=== PATIENT | female | born 1960 | race Caucasian/White ===

== ENCOUNTER 2020-08-07 06:40 | Emergency (ER) | payer MEDICAID ==
[~2020-08-07] VITALS: Ht 160 cm; Wt 49.9 kg
--- NOTE | 2020-08-07 06:59 | NUR ---
Dr. Carrizales at bedside for MSE
[2020-08-07] MEDS ORDERED: FLUORESCEIN SODIUM 1 MG STRIP ONE (07:07)
[2020-08-07] MEDS ORDERED: TETRACAINE HCL 0.5% OPHT DROP 2 ML BOTTLE ONE (07:07)
--- NOTE | 2020-08-07 07:12 | NUR ---
report given to CECY Flemnig
--- NOTE | 2020-08-07 07:12 | NUR ---
General Office Clerk assumes MD [email or web address], pending orders from for fluorecein strip & tetratcaine eye drops by to input in [employer]@this time
--- NOTE | 2020-08-07 07:19 | NUR ---
MD discharge papers from MD@this time
[2020-08-07] MEDS ORDERED: TETRACAINE HCL 0.5% OPHT DROP 2 ML BOTTLE OP ONE (07:45)
[2020-08-07] MEDS ORDERED: FLUORESCEIN SODIUM 1 MG STRIP OP ONE (07:45)
--- NOTE | 2020-08-07 07:45 | NUR ---
Patient discharged to home in stable condition with brisk ssteady gait. Written and verbal after care instructions given to patient. Patient verbalizes understanding and compliance of instructions. Stressed follow upwith opthalmologist in 2-3 days (as soon as possible) or return to ER for worsening s/s.
== END 2020-08-07 07:46 | disposition home or self-care (01) ==
LOC: ER 06:48
DX: S05.02XA Injury of conjunctiva and corneal abrasion without foreign body, left eye, initial encounter (principal); X58.XXXA Exposure to other specified factors, initial encounter; Y92.89 Other specified places as the place of occurrence of the external cause; H10.9 Unspecified conjunctivitis; Z86.79 Personal history of other diseases of the circulatory system; Z87.898 Personal history of other specified conditions
CPT/HCPCS: A4663

== ENCOUNTER 2020-09-21 04:30 | Emergency (ER) | payer MEDICAID, OTHER ==
[~2020-09-21] VITALS: Ht 160 cm; Wt 49.0 kg
[2020-09-21] MEDS ORDERED: IV NORMAL SALINE 1000 ML BAG IV ONE (04:45)
[2020-09-21] MEDS ORDERED: ONDANSETRON 4 MG/2 ML VIAL IV ONE (04:45)
[2020-09-21 04:48] LABS: BASOPHILS # (AUTO) 0.1 K/uL (0.0-8.0); BASOPHILS % (AUTO) 0.3 % (0.0-2.0); EOSINOPHILS # (AUTO) 0.2 K/uL (0.0-0.7); EOSINOPHILS % (AUTO) 1.2 % (0.0-7.0); HEMATOCRIT 45.7 % (31.2-41.9); HEMOGLOBIN 15.2 g/dL (10.9-14.3); LYMPHOCYTES # (AUTO) 0.8 K/uL (20.0-40.0); LYMPHOCYTES % (AUTO) 4.8 % (20.5-51.5); MEAN CORPUSCULAR HEMOGLOBIN 32.2 uug (24.7-32.8); MEAN CORPUSCULAR HGB CONC 33 g/dL (32.3-35.6); MEAN CORPUSCULAR VOLUME 97.1 fL (75.5-95.3); MONOCYTES # (AUTO) 1.4 K/uL (2.0-10.0); NEUTROPHILS % (AUTO) 85.7 % (38.5-71.5); PLATELET COUNT (AUTO) 380 K/uL (179-408); WHITE BLOOD COUNT (AUTO) 17.6 K/uL (3.8-11.8)
[2020-09-21] MEDS ORDERED: ONDANSETRON 4 MG/2 ML VIAL ONE (04:52)
[2020-09-21 04:55] LABS: CREATININE 1.1 mg/dL (0.6-1.3); POTASSIUM 4.4 mmol/L (3.5-5.1)
[2020-09-21 05:01] LABS: BILIRUBIN,DIRECT 0.2 mg/dL (0.0-0.2); BILIRUBIN,TOTAL 0.4 mg/dL (0.2-1.0); TOTAL PROTEIN, SERUM 8.4 g/dL (6.4-8.2)
[2020-09-21] MEDS ORDERED: DICYCLOMINE HCL 20 MG/2 ML AMPUL IM STA (05:01)
[2020-09-21] MEDS ORDERED: MIRT7.5T10 PO (05:02)
[2020-09-21] MEDS ORDERED: OXYC15TA46 PO (05:02)
[2020-09-21] MEDS ORDERED: FLUT16SP2 NS (05:02)
[2020-09-21] MEDS ORDERED: LEVO175T7 PO (05:02)
[2020-09-21] MEDS ORDERED: ESTR0.623 PO (05:02)
[2020-09-21] MEDS ORDERED: AMYL1CAP62 PO (05:02)
[2020-09-21] MEDS ORDERED: ASPI81TA31 PO (05:02)
[2020-09-21] MEDS ORDERED: LISI40TA4 PO (05:02)
[2020-09-21] MEDS ORDERED: POLY17PO4 PO (05:02)
[2020-09-21] MEDS ORDERED: PANT40TA49 PO (05:02)
[2020-09-21] MEDS ORDERED: MEDR2.5T PO (05:02)
[2020-09-21] MEDS ORDERED: EZET10TA32 PO (05:02)
[2020-09-21] MEDS ORDERED: HYDR-894 PO (05:02)
[2020-09-21] MEDS ORDERED: PROP60TA18 PO (05:02)
[2020-09-21] MEDS ORDERED: ONDA8TAB6 PO (05:02)
[2020-09-21] MEDS ORDERED: ALPR1TAB2 PO (05:02)
[2020-09-21] MEDS ORDERED: GABA-536 PO (05:02)
[2020-09-21] MEDS ORDERED: DOCU-141 PO (05:02)
[2020-09-21] MEDS ORDERED: IPRA4AER IH (05:02)
[2020-09-21] MEDS ORDERED: LIDOCAINE VISCUS 2% 15 ML UDC ONE (05:14)
[2020-09-21] MEDS ORDERED: FAMOTIDINE. 20 MG/2 ML VIAL IV ONE ×2 (05:14→05:15)
[2020-09-21] MEDS ORDERED: DICYCLOMINE HCL LIQ 10 MG/5 ML UDC ONE (05:14)
[2020-09-21] MEDS ORDERED: MAG HYDROX/AL HYDROX/SIMETH 30 ML LIQUID UDC ONE (05:14)
[2020-09-21] MEDS ORDERED: MORPHINE SULFATE 4 MG/1 ML DISP.SYRIN ONE (05:14)
[2020-09-21] MEDS ORDERED: MAG HYDROX/AL HYDROX/SIMETH 30 ML LIQUID UDC PO ONE (05:15)
[2020-09-21] MEDS ORDERED: MORPHINE SULFATE 2 MG/1 ML DISP.SYRIN IV ONE (05:15)
[2020-09-21] MEDS ORDERED: LIDOCAINE VISCUS 2% 15 ML UDC MM ONE (05:15)
[2020-09-21] MEDS ORDERED: DICYCLOMINE HCL LIQ 10 MG/5 ML UDC PO ONE (05:30)
[2020-09-21 05:55] VITALS: BP 144/75
--- NOTE | 2020-09-21 05:55 | NUR ---
Patient discharged to home in stable condition. Written and verbal after care instructions given. Patient verbalizes understanding of instructions. Stressed follow up or return to ER for worsening s/s. Patient's here to drive her home. Patient states she feels better.
--- NOTE | 2020-09-21 05:55 | NUR ---
IV removed. Catheter intact and site benign. Pressure and 4x4 gauze applied to site. No bleeding noted.
== END 2020-09-21 05:56 | disposition home or self-care (01) ==
LOC: ER 04:31
DX: R11.2 Nausea with vomiting, unspecified (principal); R19.7 Diarrhea, unspecified; R10.13 Epigastric pain; D72.829 Elevated white blood cell count, unspecified; R94.31 Abnormal electrocardiogram [ECG] [EKG]; Z90.49 Acquired absence of other specified parts of digestive tract; Z95.820 Peripheral vascular angioplasty status with implants and grafts; Z88.0 Allergy status to penicillin; Z79.82 Long term (current) use of aspirin; Z79.899 Other long term (current) drug therapy; I71.9 Aortic aneurysm of unspecified site, without rupture
CPT/HCPCS: 36415; 71045; 80048; 80076; 82962; 83690; 85025; 93005; 96361; 96374; 96375; 99285; J2270; J2405; J3490; A4663; J7030

== ENCOUNTER 2021-05-16 18:38 | Emergency (ER) | payer OTHER ==
[~2021-05-16] VITALS: Ht 165.1 cm; Wt 49.9 kg
[~2021-05-16 18:38] MED LIST: ALPR1TAB2 PO; AMYL1CAP62 PO; ASPI81TA31 PO; DOCU-141 PO; ESTR0.623 PO; EZET10TA32 PO; FLUT16SP2 NS; GABA-536 PO; HYDR-894 PO; IPRA4AER IH; LEVO175T7 PO; LISI40TA13 PO; MEDR2.5T PO; MIRT7.5T10 PO; ONDA8TAB6 PO; OXYC15TA46 PO; PANT40TA49 PO; POLY17PO4 PO; PROP60TA18 PO
[2021-05-16] MEDS ORDERED: IV NORMAL SALINE 1000 ML BAG IV ONE (19:00)
[2021-05-16] MEDS ORDERED: OXYCODONE/APAP 5-325 MG TABLET PO ONE (19:00)
[2021-05-16] MEDS ORDERED: ONDANSETRON 4 MG/2 ML VIAL IV ONE (19:00)
--- NOTE | 2021-05-16 19:00 | NUR ---
PT IS IN ROOM #1B. DR BACON EVALUATED THE PT.
--- NOTE | 2021-05-16 19:00 | NUR ---
Patient presents to ED from home for worsening abd pain x 2 days. Pain is located near the periumbilicus - non-radiating - 09/07. Patient usually takes oxycodone for pain but states that medication wasnt available to [facility] so her doctor ordered 4mg Dilaudid. A&Ox4. Anxious. Visible exopthalmos. Hyperverbal. Able to follow commands and make needs known. EKG shows possible sinus arrhythmia. No CP, no diaphoresis, no palpitations, afebrile. Lungs sounds diminished. No labored breathing or SOB. GI/: Continent. Nauseous with no vomitous episodes.
[2021-05-16] MEDS ORDERED: OXYCODONE/APAP 5-325 MG TABLET ONE (19:08)
[2021-05-16] MEDS ORDERED: ONDANSETRON 4 MG/2 ML VIAL ONE (19:11)
[2021-05-16 19:14] LABS: BASOPHILS # (AUTO) 0.1 K/uL (0.0-8.0); BASOPHILS % (AUTO) 0.5 % (0.0-2.0); EOSINOPHILS % (AUTO) 0.2 % (0.0-7.0); HEMATOCRIT 43.1 % (31.2-41.9); HEMOGLOBIN 14.4 g/dL (10.9-14.3); LYMPHOCYTES # (AUTO) 1.6 K/uL (20.0-40.0); LYMPHOCYTES % (AUTO) 13.3 % (20.5-51.5); MEAN CORPUSCULAR HGB CONC 33 g/dL (32.3-35.6); MONOCYTES # (AUTO) 0.9 K/uL (2.0-10.0); MONOCYTES % (AUTO) 7.5 % (0.0-11.0); NEUTROPHILS # (AUTO) 9.6 K/uL (1.8-8.9); NEUTROPHILS % (AUTO) 78.5 % (38.5-71.5); PLATELET COUNT (AUTO) 249 K/uL (179-408); RED BLOOD CELL COUNT(AUTO) 4.35 MIL/uL (3.63-4.92); WHITE BLOOD COUNT (AUTO) 12.2 K/uL (3.8-11.8)
[2021-05-16 19:22] LABS: CREATININE 0.8 mg/dL (0.6-1.3); POTASSIUM 3.7 mmol/L (3.5-5.1)
[2021-05-16 19:27] LABS: BILIRUBIN,DIRECT 0.2 mg/dL (0.0-0.2); BILIRUBIN,TOTAL 0.5 mg/dL (0.2-1.0); TOTAL PROTEIN, SERUM 6.3 g/dL (6.4-8.2)
[2021-05-16] MEDS ORDERED: LIOT5TAB11 PO (19:36)
[2021-05-16] MEDS ORDERED: AMLO10TA59 PO (19:36)
[2021-05-16] MEDS ORDERED: FLUT1BLS IH (19:36)
[2021-05-16] MEDS ORDERED: PRED20TA PO (19:36)
[2021-05-16] MEDS ORDERED: HYDR4TAB57 PO (19:36)
[2021-05-16] MEDS ORDERED: DIATR MEGLU/DIATRIZOATE SODIUM 30 ML BOTTLE ONE (19:39)
[2021-05-16] MEDS ORDERED: SWABABLE VALVE TRANSFER SET EA MC ONE (19:51)
[2021-05-16] MEDS ORDERED: IV NORMAL SALINE 250 ML IV ONE (19:51)
[2021-05-16] MEDS ORDERED: IOHEXOL 300MG/ML 100 ML INFUS..BTL ONE (19:51)
--- NOTE | 2021-05-16 20:12 | NUR ---
Patient resting in bed - drinking Omnipaque. No acute distress. at bedside.
--- NOTE | 2021-05-16 20:20 | NUR ---
Down to CT at this time
--- NOTE | 2021-05-16 20:40 | NUR ---
Back from CT at this time.
[2021-05-16 21:03] LABS: *BILIRUBIN,URIN NEGATIVE (NEGATIVE); *BLOOD, URINE 1+ (NEGATIVE); *CLARITY,URINE CLEAR (CLEAR); *COLOR,URINE YELLOW (YELLOW); *KETONES,URINE 1+ (NEGATIVE); *UROBILINOGEN,URINE 0.2 E.U./dl (NORMAL); LEUKOCYTE ESTERASE ,URINE NEGATIVE (NEGATIVE); NITRITE, URINE NEGATIVE (NEGATIVE); PH,URINE 6.5 (5.0-8.0); UGLUCOSE NEGATIVE (NEGATIVE)
[2021-05-16 21:12] LABS: BACTERIA,URINE FEW /HPF (NONE SEEN); SQUAMOUS EPITHELIAL CELL,UR FEW /HPF (NONE SEEN); WBC,URINE 0-3 /HPF (0-3)
[2021-05-16] MEDS ORDERED: OXYC15TA2 PO (21:19)
[2021-05-16] MEDS ORDERED: CLONIDINE HCL 0.1 MG TABLET PO ONE (21:45)
[2021-05-16 21:46] VITALS: BP 148/90
[2021-05-16] MEDS ORDERED: CLONIDINE HCL 0.1 MG TABLET ONE (21:49)
[2021-05-16] MEDS ORDERED: HYDROMORPHONE 1 MG/1 ML DISP.SYRIN IV ONE (22:00)
[2021-05-16] MEDS ORDERED: HYDROMORPHONE 1 MG/1 ML DISP.SYRIN ONE (22:01)
--- NOTE | 2021-05-16 22:36 | NUR ---
Spoke with Cara mares [facility] - She will attempt to find a bed for this patient.
[2021-05-16] MEDS ORDERED: ALPRAZOLAM 0.25 MG TABLET PO ONE (23:00)
[2021-05-16] MEDS ORDERED: ALPRAZOLAM 0.5 MG TABLET ONE (23:06)
--- NOTE | 2021-05-16 23:37 | NUR ---
Patient has been accepted at [facility]. Waiting for Authorization #. Patient sleeping in bed. No distress.
--- NOTE | 2021-05-17 00:45 | NUR ---
Told by [employer] representative that the case is still under review
--- NOTE | 2021-05-17 01:46 | NUR ---
Contacted [facility] and still no response. Kina from admitting will page transfer coordinator to find out what the hold up is.
--- NOTE | 2021-05-17 02:11 | NUR ---
Fabiola Martin with a call back at this time. Patient will be going to room 2282 (M/S) Phone number for report: [phone]
--- NOTE | 2021-05-17 02:20 | NUR ---
[facility] do not have any available units for transfers. [facility] has accepted transfer with an ETA of 0700.
[2021-05-17] MEDS ORDERED: HYDROMORPHONE 1 MG/1 ML DISP.SYRIN ONE (02:45)
[2021-05-17] MEDS ORDERED: HYDROMORPHONE 1 MG/1 ML DISP.SYRIN IV ONE (02:45)
--- NOTE | 2021-05-17 02:55 | NUR ---
Report given to CECY Hicks at [facility] [place] - ETA 0700 arrival
--- NOTE | 2021-05-17 04:42 | NUR ---
Patient asleep in bed - arousable. VSS. No acute distress.
--- NOTE | 2021-05-17 05:11 | NUR ---
[facility] Unit [facility][id number] here to transfer patient to [facility]. Report given. Patient discharged in stable condition. VSS. No distress. All belongings with patient. Steady gait.
== END 2021-05-17 05:21 | disposition short-term general hospital (02) ==
LOC: ER 18:38
DX: K80.51 Calculus of bile duct without cholangitis or cholecystitis with obstruction (principal); K85.90 Acute pancreatitis without necrosis or infection, unspecified; R31.29 Other microscopic hematuria; G89.4 Chronic pain syndrome; I10 Essential (primary) hypertension; E05.00 Thyrotoxicosis with diffuse goiter without thyrotoxic crisis or storm; I71.9 Aortic aneurysm of unspecified site, without rupture; Z90.49 Acquired absence of other specified parts of digestive tract; Z88.0 Allergy status to penicillin; Z79.82 Long term (current) use of aspirin; Z79.890 Hormone replacement therapy; Z79.899 Other long term (current) drug therapy; F17.210 Nicotine dependence, cigarettes, uncomplicated; R94.31 Abnormal electrocardiogram [ECG] [EKG]; J44.9 Chronic obstructive pulmonary disease, unspecified; F11.20 Opioid dependence, uncomplicated; Z20.822 Contact with and (suspected) exposure to COVID-19
CPT/HCPCS: 36415; 71045; 74177; 80048; 80076; 81001; 83690; 84443; 84484; 85025; 85730; 87426; 93005; 96361; 96374; 96375; 96376; 99285; J1170 ×2; J2405; Q9967; 70030-TC; J7030; J7050; Q9963

== ENCOUNTER 2021-11-24 04:05 | Emergency (ER) | payer OTHER ==
[~2021-11-24] VITALS: Ht 160 cm; Wt 49.9 kg
[~2021-11-24 04:05] MED LIST changes: +AMLO10TA59 PO; +FLUT1BLS IH; +HYDR4TAB57 PO; +LIOT5TAB11 PO; +PRED20TA PO
--- NOTE | 2021-11-24 04:30 | NUR ---
DR. BARRERA AT BEDSIDE, MSE IN PROGRESS.
--- NOTE | 2021-11-24 04:32 | NUR ---
HALEY BARRERA FOR ANAL EXAM.
[2021-11-24] MEDS ORDERED: SULFAMETH/TRIMETH 800/160 MG TABLET PO ONE (05:15)
[2021-11-24] MEDS ORDERED: SULF1TAB48 PO (05:18)
[2021-11-24] MEDS ORDERED: SULFAMETH/TRIMETH 800/160 MG TABLET ONE (05:24)
--- NOTE | 2021-11-24 05:45 | NUR ---
Patient discharged to home in stable condition. Written and verbal after care instructions given. Patient verbalizes understanding of instructions. Stressed follow up or return to ER for worsening s/s. Steady gait. Picked up by .
[2021-11-24 05:53] VITALS: BP 122/86
== END 2021-11-24 05:54 | disposition home or self-care (01) ==
LOC: ER 04:12
DX: K61.0 Anal abscess (principal); J44.9 Chronic obstructive pulmonary disease, unspecified; Z95.828 Presence of other vascular implants and grafts; I71.4 Abdominal aortic aneurysm, without rupture; F17.290 Nicotine dependence, other tobacco product, uncomplicated
CPT/HCPCS: 46050; 87070; 87077; 87186 ×3; 99283; 99406; J3490; A4663